=== PATIENT | female | born 1980 | race Caucasian/White ===

== ENCOUNTER 2017-02-18 17:55 | Emergency (ER) | payer MEDICAID ==
[~2017-02-18 17:55] MED LIST: COL250 PO; FER300 PO; VITC PO
[2017-02-18 21:00] VITALS: BP 122/80
== END 2017-02-18 21:00 | disposition home or self-care (01) ==
LOC: ED 17:55
DX: T78.40XA Allergy, unspecified, initial encounter (principal); X58.XXXA Exposure to other specified factors, initial encounter
CPT/HCPCS: J7512

== ENCOUNTER 2017-03-08 13:02 | Emergency (ER) | payer MEDICAID ==
[~2017-03-08] VITALS: Ht 165.1 cm; Wt 97.5 kg
[2017-03-08 14:27] VITALS: BP 135/66
== END 2017-03-08 14:27 | disposition home or self-care (01) ==
LOC: ED 13:02
DX: T78.3XXA Angioneurotic edema, initial encounter (principal); R03.0 Elevated blood-pressure reading, without diagnosis of hypertension; Y92.89 Other specified places as the place of occurrence of the external cause
CPT/HCPCS: J0171; J7512; Q0163

== ENCOUNTER 2017-06-28 05:03 | Inpatient (IN) | payer MEDICAID ==
[~2017-06-28] VITALS: Ht 165.1 cm; Wt 100.4 kg
--- NOTE | 2017-06-28 05:27 | NUR ---
PATIENT REPORTS TO THE ED WITH COMPLAINT OF BEING SENT BY HER MD FOR ABDNORMAL LABS.
--- NOTE | 2017-06-28 05:28 | NUR ---
SEEN BY . EKG WAS DOBE. PORTABLE CXR WAS DONE..
[2017-06-28 06:00] LABS: BASOPHIL % 1.1 % (0-2); PLATELET COUNT 236 x10^3mcL (130-400)
[2017-06-28 06:01] LABS: CALCIUM 8.2 mg/dL (8.5-10.1); CARBON DIOXIDE 25.5 mmol/L (21-32); CHLORIDE SERUM 103 mmol/L (98-107); CREATININE SERUM 0.5 mg/dL (0.6-1.0); GFR1 > 60 mL/min; GLUCOSE SERUM 105 mg/dL (74-106); POTASSIUM SERUM 3.6 mmol/L (3.5-5.1); SODIUM SERUM 137 mmol/L (136-145)
[2017-06-28 06:07] LABS: ALBUMIN 3.5 g/dL (3.4-5.0); ALKALINE PHOSPHATASE 75 U/L (46-116); ALT/SGPT 21 U/L (14-59); AST/SGOT 14 U/L (15-37); BILIRUBIN TOTAL 0.7 mg/dL (0.20-1.00); PHOSPHOROUS 3.1 mg/dL (2.5-4.9); RED CELL DISTRIBUTION WIDTH 21.6 % (11.5-14.5); TOTAL PROTEIN, SERUM 7.7 g/dL (6.4-8.2); URIC ACID 3.5 mg/dL (2.6-6.0)
--- NOTE | 2017-06-28 06:10 | NUR ---
E M ASSEMBLER CALL TO REPORT LOW HGB. DR WOODALL NOTIFIED.
[2017-06-28 06:14] LABS: CHOLESTEROL 132 mg/dL (<200); HDL CHOLESTEROL 29 mg/dL (40-60)
[2017-06-28 06:57] LABS: rbc morphology (normal/abnorm) ABNORMAL (NORMAL)
--- NOTE | 2017-06-28 07:12 | NUR ---
REC'D REPORT FROM SHANTAL MAYER FOR CONTINUATION OF CARE. DR. WOODALL AT BEDSIDE FOR PLAN OF CARE. CALL LIGHT WITHIN REACH. PT A/O X4. WILL CONTINUE TO MONITOR.
--- NOTE | 2017-06-28 08:13 | NUR ---
REPORT GIVEN TO SHANTAL VASQUES FOR CONTINUATION OF CARE PRIMARY RN.
--- NOTE | 2017-06-28 08:25 | NUR ---
PT TRANSFERED VIA GURNEY ACCOMPANIED BY NURSE AND EMT. MANAGER USER INTERFACE ATTACHED. VSS. RESPS E/U. NO S/S OF DISTRESS NOTED.
--- NOTE | 2017-06-28 08:35 | NUR ---
RC'D PT ON [facility] FROM ED WITH NURSE PRESENT AT BEDSIDE. PT A/A/O/X4, SPEECH CLEAR AND APPROPRIATE. DENIES SOB/DIZZINESS/SYNCOPE. ON TELE 1 WITH SR. DENIES CHEST PAIN/PRESSURE. PALP PULSES, NO EDEMA NOTED. PT REPORTS HEAVY MENSTRUAL CYCLE ON May. RESPIRATIONS EQUAL AND UNLABORED. LUNGS CTA. ON RA, DENIES SOB. ABDOMEN SOFT AND NONTENDER. ACTIVE BS. DENIES N/V. VOIDS FREELY, DENIES BURNING. AMBULATORY WITH BRP. SKIN W/D/I. DENIES PAIN AT THIS TIME. IV PATENT AND INFUSING. BED IN LOW POSITION. CALL LIGHT IN REACH. EDUCATED PT ON USING CALL LIGHT WHEN NEEDING ASSISTANCE. WILL CONTINUE TO MONITOR.
[2017-06-28 08:56] VITALS: BP 115/71
[2017-06-28 09:10] LABS: CHOLESTEROL/HDL RATIO 4.4; MAGNESIUM 1.9 mg/dL (1.8-2.4)
[2017-06-28 09:19] LABS: FREE T4 1.05 ng/dL (0.76-1.46); FREE THYROXINE INDEX 3.1 ug/dL (1.4-4.5); T4(THYROXINE) 9.2 ug/dL (4.7-13.3)
[2017-06-28 09:26] LABS: RED BLOOD CELLS 4.19 M/mm3 (4.10-5.10)
[2017-06-28 10:06] LABS: T3 TOTAL 1.09 ng/mL
--- NOTE | 2017-06-28 10:17 | NUR ---
AM MEDICATIONS GIVEN. PT TOLERATED WELL. CALL LIGHT IN REACH. WILL CONTINUE TO MONITOR.
[2017-06-28 10:34] VITALS: Ht 165.1 cm; Wt 100.4 kg
--- NOTE | 2017-06-28 12:33 | NUR ---
PT RESTING IN CHAIR COMPLAINING OF HEADACHE 12/28. MEDICATED WITH TYLENOL PO PRN PER MED REC. RESPIRATIONS EQUAL AND UNLABORED. DENIES SOB/DIZZINESS. CALL LIGHT IN REACH. WILL CONTINUE TO MONITOR.
--- NOTE | 2017-06-28 14:20 | NUR ---
NOTIFIED BY PRINCIPAL NETWORK ARCHITECT BP WAS 94/45 (58) HR 69. PT REPORTS BEING ASYMPTOMATIC. RECHECKED BP ON OPPOSITE ARM BP 94/50 (64) HR 73. DR HUFF NOTIFIED AND MADE AWARE. DR HUFF TO VISIT PT AT BEDSIDE. WILL CONTINUE TO MONITOR.
[2017-06-28 14:25] VITALS: BP 94/45
[2017-06-28 15:02] LABS: PLATELET COUNT 215 x10^3mcL (130-400)
--- NOTE | 2017-06-28 15:07 | NUR ---
500ML NS BOLUS ORDERED AND STARTED PER DR HUFF'S ORDER. PT RESTING IN CHAIR. CALL LIGHT IN REACH. WILL CONTINUE TO MONITOR.WILL RECHECK BP WHEN BOLUS IS COMPLETE
[2017-06-28 15:09] LABS: RED CELL DISTRIBUTION WIDTH 22.1 % (11.5-14.5)
[2017-06-28 17:24] VITALS: BP 87/51
--- NOTE | 2017-06-28 18:35 | NUR ---
DR. HUFF NOTIFIED AND MADE AWARE THAT BP DID NOT INCREASE AFTER 1ST 500ML NS BOLUS. PT ASYMTPOMATIC. DR. HUFF INPUTTED 2ND ORDER OF 500ML BOLUS. BOLUS INITIATED, WILL CONTINUE TO MONITOR.
[2017-06-28 18:37] LABS: BASOPHIL % 0.7 % (0-2); PLATELET COUNT 221 x10^3mcL (130-400)
--- NOTE | 2017-06-28 18:58 | NUR ---
PT RESTING IN BED WITH NO APPARENT SIGNS OF DISTRESS. DENIES PAIN/DISCOMFORT/SOB. ON TELE 1 WITH SR. RESPIRATIONS EQUAL AND UNLABORED. IV PATENT AND INFUSING. BED IN LOW POSITION. CALL LIGHT IN REACH. WILL ENDORSE TO FURNITURE PAINTER RN
[2017-06-28 19:08] LABS: RED CELL DISTRIBUTION WIDTH 22.1 % (11.5-14.5)
--- NOTE | 2017-06-28 19:20 | NUR ---
PT AWAKE, A/0 X4, SITTING UP IN CHAIR WATCHING TV. NO ACUTE DISTRESS NOTED. 2ND 500 ML NS BOLUS RUNNING UPON ENTERING ROOM. IV SITE PATENT AND INTACT. NO PAIN, REDNESS OR SWELLING NOTED AT SITE. PT DENIES ANY PAIN, SOB OR CHEST DISCOMFORT AT THIS TIME. ALL SAFETY MEASURES ENSURED. CALL LIGHT AND PERSONAL BELONGINGS WITHIN REACH. WILL CONTINUE TO MONITOR.
[2017-06-28 21:03] VITALS: BP 96/53
[2017-06-28 22:02] LABS: BAND NEUTROPHIL 2 % (0-10); MONOCYTE 6 % (0-7); SEGMENTED NEUTROPHILS 57 % (37-75)
[2017-06-28 22:03] LABS: rbc morphology (normal/abnorm) ABNORMAL (NORMAL); tear drop cell (dacryocyte) 1+
[2017-06-28 22:04] LABS: PLATELET MORPHOLOGY PLATELETS NORMAL; ovalocyte/elliptocyte 1+
[2017-06-28 22:06] LABS: ovalocyte/elliptocyte 1+; rbc morphology (normal/abnorm) ABNORMAL (NORMAL); tear drop cell (dacryocyte) 1+
--- NOTE | 2017-06-29 01:56 | NUR ---
PT ASLEEP COMFORTABLY. NO INDICATION OF DISTRESS NOTED. BREATHING NON-LABORED AND EVEN. ALL SAFETY MEASURES ENSURED. CALL LIGHT WITHIN REACH. WILL CONTINUE TO MONITOR.
[2017-06-29 05:14] VITALS: BP 116/69
[2017-06-29 06:25] LABS: CALCIUM 8.5 mg/dL (8.5-10.1); CARBON DIOXIDE 25.9 mmol/L (21-32); CHLORIDE SERUM 106 mmol/L (98-107); CREATININE SERUM 0.5 mg/dL (0.6-1.0); GFR1 > 60 mL/min; GLUCOSE SERUM 95 mg/dL (74-106); PLATELET COUNT 225 x10^3mcL (130-400); POTASSIUM SERUM 3.8 mmol/L (3.5-5.1); SODIUM SERUM 138 mmol/L (136-145)
--- NOTE | 2017-06-29 06:27 | NUR ---
PT RESTED WELL THROUGH THE NIGHT. NO DISTRESS OR ACUTE CHANGES IN CONDITION NOTED THROUGHOUT SHIFT. PTS BP WENT UP TO 116/69. PT DENIES FEELING FAINT, DIZZY OR HAVING GUSTAFSON AT THIS TIME. PT DENIED ANY BLOOD IN URINE OR STOOL. IV FLUID CONTINUING TO INFUSE PER MD ORDER. IV SITE PATENT AND INTACT. ALL NEEDS ASSESSED AND MET. ALL SAFETY MEASURES ENSURED. CALL LIGHT AND PERSONAL BELONGINGS WITHIN REACH. WILL CONTINUE TO MONITOR.
--- NOTE | 2017-06-29 07:10 | NUR ---
RECEIVED PATIENT RESTING IN BED COMFORTABLY A/O X4, CLEAR SPEECH, NO NEURO DEFICITS NOTED. TELE # [address], DENIES CHEST PAIN. BREATHING EVEN UNLABBORED ON RA, DENIES SOB, NO DISTRESS NOTED. BS ACTIVE X4, DENIES N/V OR ABD PAIN. SKIN IS WARM CDI WITH IV TO LAC INTACT INFUSING NS AT 10 ML/HR FREE FROM REDNESS AND INFILTRATION. PATIENT DENIES ANY PAIN, IS CALM WITH CARE. INSTRUCTED TO CALL FOR ASSISTANCE IF NEEDED. CALL LIGHT WITHIN REACH, BED IN LOW POSITION. WILL CONTINUE TO MONITOR AND MAINTAIN SAFETY.
[2017-06-29 07:16] LABS: RED CELL DISTRIBUTION WIDTH 21.8 % (11.5-14.5)
[2017-06-29 07:17] LABS: BASOPHIL % 0 % (0-2)
[2017-06-29 07:21] LABS: rbc morphology (normal/abnorm) ABNORMAL (NORMAL)
--- NOTE | 2017-06-29 09:57 | NUR ---
ROUNDS MADE- DR. CRAWFORD, RESIDENT TEAM, CHARGE NURSE AND PRIMARY NURSE AT BEDSIDE. POC REVIEWED WITH PATIENT- PATIENTS HGB/HCT STILL LOW, PATIENT IS RECEIVING IRON IV, PATIENT WILL STAY TODAY AND HAVE LABS RECHECKED TOMORROW MORNING. IF STABLE PATIENT MAY POSSIBLE BE DISCHARGED HOME 06/30/17. ALL QUESTIONS AND CONCERNS ADDRESSED. WILL MONITOR.
[2017-06-29 10:16] VITALS: BP 88/45
[2017-06-29 10:26] VITALS: BP 106/55
--- NOTE | 2017-06-29 10:50 | NUR ---
URINE SAMPLE COLLECTED AND SENT DOWN TO LAB FOR UA, UDS, URINE CULTURE AND HCG.
[2017-06-29 11:01] LABS: microscopic required? NO
[2017-06-29 11:18] LABS: UA SPECIFIC GRAVITY <=1.005 (1.005-1.035); urine erythrocyte NEGATIVE (NEGATIVE)
[2017-06-29 11:31] LABS: AMPHETAMINE QUAL UR NONE DETECTED (NEG <=1000)
--- NOTE | 2017-06-29 12:51 | NUR ---
DR. HUFF AT BEDSIDE TO SPEAK WITH AND ASSESS PATIENT. ALL QUESTIONS AND CONCERNS ADDRESSED. WILL MONITOR.
[2017-06-29 14:33] VITALS: BP 113/71
--- NOTE | 2017-06-29 15:43 | NUR ---
PATIENT SITTING UP IN BED, NO DISTRESS NOTED. ALL NEEDS ATTENDED TO. SAFETY PRECAUTIONS MAINTAINED. WILL MONITOR.
--- NOTE | 2017-06-29 16:29 | NUR ---
BEDSIDE REPORT GIVEN TO JOANN MURGUIA, ALL QUESTIONS AND CONCERNS ADDRESSED. ALL CARES ENDORSED.
--- NOTE | 2017-06-29 16:30 | NUR ---
PT RECEIVED AND SEEN. PT IS AAOX4. APPEARS CALM. NO SIGNS OF ACUTE DISTRESS. PT RESPIRATIONS EVEN AND UNLABORED ON ROOM AIR. PT DENIES DIZZINESS, NAUSEA, VOMITING, DROWSINESS. CALL LIGHT WITHIN REACH. IV INFUSING PER ORDER, APPEARS WNL. ALL SAFETY MEASURES IN PLACE. WILL CONTINUE TO MONITOR.
[2017-06-29 17:28] VITALS: BP 95/54
--- NOTE | 2017-06-29 19:20 | NUR ---
REPORT GIVEN TO NIGHT NURSE. PT IS RESTING IN BED AT THIS TIME. APPEARS CALM. NO SIGNS OF ACUTE DISTRESS. RESPIRATIONS EVEN AND UNLABORED ON ROOM AIR. ALL SAFETY MEASURES IN PLACE.
--- NOTE | 2017-06-29 19:20 | NUR ---
PT IS AWAKE, A/OX4 WITH FAMILY AT BEDSIDE AT THIS TIME. PT DENIES FEELING ANY PAIN, GUSTAFSON, SOB, CHEST DISCOMFORT AT THIS TIME. PT APPEARS COMFORTABLE AND IN GOOD SPIRITS. IV FLUIDS INFUSING PER MD ORDER. IV SITE TO LAC PATENT AND INTACT AT THIS TIME. NO PAIN, REDNESS OR SWELLING NOTED AT SITE. ALL SAFETY MEAUSRES ENSURED. CALL LIGHT AND PERSONAL BELONGINGS WITHIN REACH. WILL CONTINUE TO MONITOR.
[2017-06-29 20:28] VITALS: BP 99/57
[2017-06-29 21:51] LABS: BASOPHIL % 0.3 % (0-2); PLATELET COUNT 239 x10^3mcL (130-400)
[2017-06-29 22:03] LABS: RED CELL DISTRIBUTION WIDTH 22.2 % (11.5-14.5)
[2017-06-29 22:26] LABS: rbc morphology (normal/abnorm) ABNORMAL (NORMAL)
[2017-06-29 22:27] LABS: ovalocyte/elliptocyte 1+; tear drop cell (dacryocyte) 1+
--- NOTE | 2017-06-29 22:30 | NUR ---
PT WAS ABLE TO TAKE A SHOWER PER MD ORDER AND TOLERATED WELL. IV WAS ALSO RESTARTED FROM LAC TO RFA. IV SITE PATENT AND INTACT.
--- NOTE | 2017-06-30 01:20 | NUR ---
PT ASLEEP IN BED. NO INDICATION OF DISTRESS OR DISCOMFORT NOTED. NON-LABORED AND EVEN BREATHING NOTED. CALL LIGHT WITHIN REACH. WILL CONTINUE TO MONITOR.
[2017-06-30 05:32] VITALS: BP 101/48
--- NOTE | 2017-06-30 06:34 | NUR ---
PT SLEPT WELL THROUGH THE NIGHT WITH NO COMPLAINTS OF PAIN OR DISCOMFORT. NO ACUTE CHANGES IN CONDITION NOTED. PT WAS ABLE TO TAKE A SHOWER LAST NIGHT AND STATED FEELING BETTER. SHE IS EAGER TO GO HOME TODAY. ALL NEEDS MET AND ASSESSED. IV FLUIDS INFUSING PER MD ORDER AND IV SITE REMAINS PATENT AND INTACT. CALL LIGHT AND PERSONAL BELONGINGS WITHIN REACH. WILL CONTINUE TO MONITOR.
[2017-06-30 06:54] LABS: CALCIUM 8.7 mg/dL (8.5-10.1); CARBON DIOXIDE 24.9 mmol/L (21-32); CHLORIDE SERUM 105 mmol/L (98-107); CREATININE SERUM 0.5 mg/dL (0.6-1.0); GFR1 > 60 mL/min; GLUCOSE SERUM 91 mg/dL (74-106); POTASSIUM SERUM 3.6 mmol/L (3.5-5.1); SODIUM SERUM 138 mmol/L (136-145)
--- NOTE | 2017-06-30 07:36 | NUR ---
PT AWAKE, ALERT, ORIENTED, DENIES PAIN, PRESSURE, SOB AT THIS TIME. LUNG SOUNDS CLEAR TO AUSCULTATION, HRRR, TELE SHOWS NSR. BOWEL SOUNDS ACTIVE X4, DENIES BLACK/TARRY STOOLS, STATES "REGULAR" STOOL. SKIN CDI THROUGHOUT, RFA IV CDI AND PATENT. ABDOMEN SOFT ROUND NONTENDER. PULSES STRONG THROUGHOUT ALL EXTREMITIES. BED IN LOWEST POSITION, CALL LIGHT WITHIN REACH, 2 RAILS UP.
[2017-06-30 08:23] LABS: BASOPHIL % 0.2 % (0-2); PLATELET COUNT 222 x10^3mcL (130-400)
[2017-06-30 08:29] LABS: RED CELL DISTRIBUTION WIDTH 22.1 % (11.5-14.5)
--- NOTE | 2017-06-30 08:38 | NUR ---
RECEIVED [id number] OF 6.7HGB, 24HCT. DOCTOR AWARE DURING ROUNDS.
[2017-06-30] MEDS ORDERED: MULTIVITAMIN1 SGL PO (09:33)
[2017-06-30] MEDS ORDERED: FERG PO (09:33)
[2017-06-30 09:34] LABS: ovalocyte/elliptocyte 1+; rbc morphology (normal/abnorm) ABNORMAL (NORMAL); tear drop cell (dacryocyte) 1+
[2017-06-30 09:42] VITALS: BP 101/48
[2017-06-30 09:43] VITALS: BP 101/48
[2017-06-30 09:48] VITALS: BP 117/58
--- NOTE | 2017-06-30 10:26 | NUR ---
PROVIDED DISCHARGE INFORMATION TO PATIENT, DISCUSSED IMPORTANCE TO FOLLOW UP WITH PCP BEFORE RETURNING TO WORK, PATIENT VERBALIZED UNDERSTANDING. DISCUSSED DISCHARGE MEDS AND FOLLOW UP APPOINTMENTS, PATIENT VERBALIZED UNDERSTANDING. FERRLECIT CURRENTLY RUNNING, WILL DISCHARGE ONCE COMPLETE.
--- NOTE | 2017-06-30 11:44 | NUR ---
IV CATHETER DC'D, TO WARRANTY MANAGER PATIENT, CATHETER TIP INTACT.
--- NOTE | 2017-06-30 12:05 | NUR ---
PT TAKING DOWN VIA WHEELCHAIR.
== END 2017-06-30 12:08 | disposition home or self-care (01) | DRG 663 ==
LOC: ED 05:03 → DU 07:23
PROVIDERS: Emergency Medicine; Family Medicine; ADMIT Student in an Organized Health Care Education/Training Program
DX: D50.9 Iron deficiency anemia, unspecified (principal); N17.0 Acute kidney failure with tubular necrosis; E66.9 Obesity, unspecified; Z68.36 Body mass index [BMI] 36.0-36.9, adult
CPT/HCPCS: 83880; 84439; J2916; J7030; J7040; Q0092